=== PATIENT | male | born 1980 | race Caucasian/White ===

== ENCOUNTER 2025-07-10 00:49 | Emergency (ER) | payer MEDICARE, SELFPAY ==
[~2025-07-10] VITALS: Ht 180.3 cm; Wt 75.9 kg
[2025-07-10 03:17] LABS: BASO # 0.1 10^3/uL (0.0-0.2); BASO % 0.4 % (0.0-1.0); EOS # 0.1 10^3/uL (0.0-0.5); EOS % 1.0 % (0.0-3.0); LYMPH # 1.9 10^3/uL (1.5-5.0); LYMPH % 13.6 % (24.0-44.0); MONO # 0.8 10^3/uL (0.0-0.8); MONO % 5.4 % (2.0-8.0); NEUTROPHILS # 10.9 10^3/uL (1.5-8.5); NEUTROPHILS % 78.8 % (36.0-66.0); PLATELET COUNT, AUTOMATED 231 10^3/uL (150-450)
[2025-07-10 03:40] LABS: CK-MB VALUE MASS 1.9 NG/ML (<3.6)
[2025-07-10 03:42] LABS: CPK CREATINE PHOSPHOKINASE 143 U/L (46-171); MB/CK RELATIVE INDEX 1.32 (< OR =4)
[2025-07-10 03:43] LABS: ALT/SGPT 33 U/L (7.0-40); AST/SGOT 21 U/L (<34); CALCIUM LEVEL 9.3 MG/DL (8.5-10.1); CARBON DIOXIDE LEVEL 29 MMOL/L (20-31); CHLORIDE LEVEL 102 MMOL/L (98-107); CREATININE FOR GFR 0.68 MG/DL (0.70-1.30); GLOMERULAR FILTRATION RATE > 90.0 (>60); POTASSIUM SERUM 4.4 MMOL/L (3.5-5.1); SODIUM LEVEL 140 MMOL/L (136-145)
[2025-07-10 04:00] VITALS: TEMP 97.8
[2025-07-10 04:56] LABS: CK-MB VALUE MASS 1.5 NG/ML (<3.6)
[2025-07-10 05:07] LABS: CPK CREATINE PHOSPHOKINASE 134.0 U/L (46-171); MB/CK RELATIVE INDEX 1.11 (< OR =4)
[2025-07-10] MEDS ORDERED: ISOVUE-370 76% 100 ML VIAL As Ordered ONE (05:48)
[2025-07-10] MEDS: KETOROLAC 30 MG/ML 1 ML VIAL IV ONE (05:50)
[2025-07-10 06:00] VITALS: BP 147/86; O2SAT 97
[2025-07-10] MEDS ORDERED: NAPR-837 PO (06:28)
== END 2025-07-10 06:54 | disposition home or self-care (01) ==
LOC: M ED 00:49
DX: R07.89 Other chest pain (principal); G40.909 Epilepsy, unspecified, not intractable, without status epilepticus; J45.909 Unspecified asthma, uncomplicated; F12.10 Cannabis abuse, uncomplicated; F17.200 Nicotine dependence, unspecified, uncomplicated; Z88.0 Allergy status to penicillin; Z88.6 Allergy status to analgesic agent; Z91.030 Bee allergy status; Z79.899 Other long term (current) drug therapy; Z79.1 Long term (current) use of non-steroidal anti-inflammatories (NSAID)
CPT/HCPCS: 71045; 71275; 80048; 80076; 82550; 82553; 83690; 84484; 85025; 93005; 93041; 94760; 96374; 99285; J1885; Q9967